=== PATIENT | female | born 1975 | race Caucasian/White ===

== ENCOUNTER → 2017-05-06 | Emergency (ER) | payer OTHER, SELFPAY ==
[~2017-05-06] MED LIST: Ketorolac Tromethamine 30 MG/ML VIAL ONE; clonazePAM 0.5 MG TAB ONE
== END ==
LOC: NAV ERS 02:56
DX: F41.9 Anxiety disorder, unspecified (principal); F17.210 Nicotine dependence, cigarettes, uncomplicated; Z79.899 Other long term (current) drug therapy
CPT/HCPCS: 96372; J1885